=== PATIENT | female | born 1955 | race Caucasian/White ===

== ENCOUNTER 2017-11-11 21:19 | Emergency (ER) | payer SELFPAY ==
[2017-11-11] MEDS ORDERED: TETANUS & DIPHTHERIA TOX,ADULT 0.5 ML VIAL ONE (23:32)
--- NOTE | 2017-11-11 23:50 | EDPHYS ---
Physician Documentation [facility] Name: Diana Atwood Age: 62 yrs Sex: Female : 1955 Arrival Date: 11/11/2017 Time: 21:19 Bed 19 Private MD: ED Physician Gabriele Barth HPI: 11/12 00:03 This 62 yrs old Female presents to ER via Ambulatory with complaints of Fall snw Injury, Head Injury. 00:03 Details of fall: The patient fell from an upright position. Onset: The symptoms/episode snw began/occurred suddenly, just prior to arrival. Associated injuries: The patient sustained injury to the head. Severity of symptoms: At their worst the symptoms were moderate. The patient has not experienced similar symptoms in the past. The patient has not recently seen a physician. pt running down driveway in the dark after her dog. Tripped and fell striking head at right eyebrow on the concrete, no LOC, large hematoma to right orbital ridge and hindu. Historical: - Allergies: 11/11 21:41 Cipro; aa1 - Home Meds: 21:41 Lisinopril Oral [Active]; propranolol Oral [Active]; aa1 - PMHx: 21:41 Hypertension; aa1 - PSHx: 21:41 Tonsillectomy; Cholecystectomy; aa1 - Immunization history:: Last tetanus immunization: > 10 years ago. - Social history:: Smoking status: Patient/guardian denies using tobacco. ROS: 11/12 00:00 Constitutional: Negative for fever, chills, and weight loss, Eyes: Negative for injury, snw pain, redness, and discharge, ENT: Negative for injury, pain, and discharge, Neck: Negative for injury, pain, and swelling, Cardiovascular: Negative for chest pain, palpitations, and edema, Respiratory: Negative for shortness of breath, cough, wheezing, and pleuritic chest pain, Abdomen/GI: Negative for abdominal pain, nausea, vomiting, diarrhea, and constipation, Back: Negative for injury and pain, : Negative for injury, bleeding, discharge, and swelling, MS/Extremity: Negative for injury and deformity, Skin: Negative for injury, rash, and discoloration. Neuro: Positive for fell and struck head on concrete. Exam: 00:00 Constitutional: This is a well developed, well nourished patient who is awake, alert, snw and in no acute distress. Eyes: Pupils equal round and reactive to light, extra-ocular motions intact. Lids and lashes normal. Conjunctiva and sclera are non-icteric and not injected. Cornea within normal limits. Periorbital areas with no swelling, redness, or edema. ENT: Nares patent. No nasal discharge, no septal abnormalities noted. Tympanic membranes are normal and external auditory canals are clear. Oropharynx with no redness, swelling, or masses, exudates, or evidence of obstruction, uvula midline. Mucous membranes moist. Neck: Trachea midline, no thyromegaly or masses palpated, and no cervical lymphadenopathy. Supple, full range of motion without nuchal rigidity, or vertebral point tenderness. No Meningismus. Chest/axilla: Normal chest wall appearance and motion. Nontender with no deformity. No lesions are appreciated. Cardiovascular: Regular rate and rhythm with a normal S1 and S2. No gallops, murmurs, or rubs. Normal PMI, no JVD. No pulse deficits. Respiratory: Lungs have equal breath sounds bilaterally, clear to auscultation and percussion. No rales, rhonchi or wheezes noted. No increased work of breathing, no retractions or nasal flaring. Abdomen/GI: Soft, non-tender, with normal bowel sounds. No distension or tympany. No guarding or rebound. No evidence of tenderness throughout. Back: No spinal tenderness. No costovertebral tenderness. Full range of motion. Skin: Warm, dry with normal turgor. Normal color with no rashes, no lesions, and no evidence of cellulitis. MS/ Extremity: Pulses equal, no cyanosis. Neurovascular intact. Full, normal range of motion. ecchymosis and abrasion to right fifth finger Neuro: Awake and alert, GCS 15, oriented to person, place, time, and situation. Cranial nerves II-XII grossly intact. Motor strength 5/5 in all extremities. Sensory grossly intact. Cerebellar exam normal. Normal gait. 00:00 Head/face: Noted is hematoma, that is moderate, that is severe, of the right side of forehead and right hindu. Vital Signs: 11/11 21:41 BP 146 / 104; Pulse 97; Resp 20; Temp 97.6; Pulse Ox 99% on R/A; Weight 74.84 kg (R); aa1 Height 5 ft. 5 in. (165.10 cm); Pain 2/10; 22:45 BP 149 / 93; Pulse 94; Resp 17 S; Pulse Ox 99% on R/A; Pain 2/10; jd3 23:29 BP 133 / 85; Pulse 92; Resp 18; Pulse Ox 98% on R/A; jd3 21:41 Body Mass Index 27.46 (74.84 kg, 165.10 cm) aa1 [employer] Coma Score: 21:50 Eye Response: spontaneous(4). Verbal Response: oriented(5). Motor Response: obeys jd3 commands(6). Total: 15. MDM: 22:57 Patient medically screened. [facility] 11/12 00:02 Data reviewed: vital signs, nurses notes. Data interpreted: Pulse oximetry: on room air snw is 98 %. Interpretation: normal. Counseling: I had a detailed discussion with the patient and/or guardian regarding: the historical points, exam findings, and any diagnostic results supporting the discharge/admit diagnosis, the presence of at least one elevated blood pressure reading (>120/80) during this emergency department visit, radiology results, the need for outpatient follow up, to return to the emergency department if symptoms worsen or persist or if there are any questions or concerns that arise at home. Special discussion: Based on the patient's history, exam and DX evaluation, there is no indication for emergent intervention or inpatient TX. It is understood by the patient/guardian that if the SXs persist or worsen they need to return immediately for re-evaluation. Based on the history and exam findings, there is no indication for further emergent testing or inpatient evaluation. I discussed with the patient/guardian the need to see the primary care provider for further evaluation of the symptoms. 11/11 23:02 Order name: CT Head Brain wo Cont snw 11/11 23:02 Order name: Ice pack; Complete Time: 23:09 snw 11/11 23:02 Order name: Wound Care: right lateral hand; Complete Time: 23:09 snw Administered Medications: 11/11 23:17 Drug: Tetanus-Diphtheria Toxoid Adult 0.5 ml {Outsole Cutter Machine: [employer]. Exp: jd3 01/01/2020. Lot #: [id number]. } Route: IM; Site: right deltoid; 23:54 Follow up: Response: No adverse reaction jd3 Disposition: 11/12 07:09 Co-signature as Attending Physician, Gabriele Barth MD I agree with the assessment and [facility] plan of care. Disposition: 11/11/17 23:50 Discharged to Home. Impression: Superficial injury of head, Hematoma of superior orbital ridge/lateral hindu. - Condition is Stable. - Discharge Instructions: Abrasion, Head Injury, Adult, Hematoma, Fall Prevention and Home Safety, Post-Concussion Syndrome, VIS, Tetanus, Diphtheria (Td) - CDC. - Prescriptions for Tylenol- Codeine #3 300-30 mg Oral Tablet - take 1 tablet by ORAL route every 6 hours As needed; 30 tablet. - Medication Reconciliation Form, Thank You Letter, Antibiotic Education, Prescription Opioid Use form. - Follow up: Private Physician; When: 2 - 3 days; Reason: Recheck today's complaints, Continuance of care, Re-evaluation by your physician. Follow up: Emergency Department; When: As needed; Reason: Worsening of condition. Signatures: Dispatcher [employer] Ashly Noe, RN RN aa1 Gabriele Barth MD MD cha Therrien, Shelly, SENIOR CREDIT OFFICER-C SENIOR CREDIT OFFICER-Annaw Dennis Houston RN RN jd3
--- NOTE | 2017-11-11 23:50 | ER ---
Nurse's Notes [facility] Name: Diana Atwood Age: 62 yrs Sex: Female : 1955 Arrival Date: 11/11/2017 Time: 21:19 Bed 19 Private MD: Diagnosis: Superficial injury of head;Hematoma of superior orbital ridge/lateral pentecostalism Presentation: 11/11 21:39 Presenting complaint: Patient states: she was running down the driveway after her dog aa1 and tripped, causing her to fall and hit her head. Denies LOC. Transition of care: patient was not received from another setting of care. Onset of symptoms was November 11, 2017. Care prior to arrival: None. 21:39 Method Of Arrival: Ambulatory aa1 21:39 Acuity: TY 3 aa1 Triage Assessment: 21:41 General: Appears in no apparent distress. comfortable, Behavior is calm, cooperative, aa1 appropriate for age. Historical: - Allergies: 21:41 Cipro; aa1 - Home Meds: 21:41 Lisinopril Oral [Active]; propranolol Oral [Active]; aa1 - PMHx: 21:41 Hypertension; aa1 - PSHx: 21:41 Tonsillectomy; Cholecystectomy; aa1 - Immunization history:: Last tetanus immunization: > 10 years ago. - Social history:: Smoking status: Patient/guardian denies using tobacco. Screenin:44 Abuse screen: Denies threats or abuse. Nutritional screening: No deficits noted. jd3 Tuberculosis screening: No symptoms or risk factors identified. Fall Risk Fall in past 12 months (25 points). Mental Status- Oriented to own ability (0 pts). Total Hood Fall Scale indicates Low Risk Score (25-44 pts). Fall prevention measures have been instituted. Side Rails Up X 2 Placed close to Nursing Station Frequent Obs/Assesments occuring Family Present and informed to notify staff if they need to leave bedside. Assessment: 21:50 General: Appears in no apparent distress. uncomfortable, Behavior is calm, cooperative, jd3 appropriate for age. Pain: Complains of pain in forehead Pain currently is 2 out of 10 on a pain scale. Quality of pain is described as aching. Neuro: Level of Consciousness is awake, alert, obeys commands, Oriented to person, place, time, situation, Appropriate for age Tax Attorney are equal bilaterally Moves all extremities. Gait is steady, Speech is normal, Facial symmetry appears normal, Pupils are PERRLA, Intact. Cardiovascular: Heart tones S1 S2 present Capillary refill < 3 seconds Patient's skin is warm and dry. Respiratory: Airway is patent Respiratory effort is even, unlabored, Respiratory pattern is regular, symmetrical, Breath sounds are clear bilaterally. GI: Abdomen is round Patient currently denies nausea, vomiting. : No signs and/or symptoms were reported regarding the genitourinary system. EENT: No signs and/or symptoms were reported regarding the EENT system. Derm: Skin is intact, Skin is dry, Skin is normal, Skin temperature is warm. Musculoskeletal: Circulation, motion, and sensation intact. Range of motion: intact in all extremities. Injury Description: Bruise sustained to forehead is purple. 22:46 Reassessment: Patient appears in no apparent distress at this time. Patient and/or jd3 family updated on plan of care and expected duration. Pain level reassessed. Patient is alert, oriented x 3, equal unlabored respirations, skin warm/dry/pink. awaiting to be seen by provider. 11/12 00:06 Reassessment: Patient appears in no apparent distress at this time. Patient and/or jd3 family updated on plan of care and expected duration. Pain level reassessed. Patient is alert, oriented x 3, equal unlabored respirations, skin warm/dry/pink. pt reported understanding of discharge instructions, even and steady gait upon discharge. Vital Signs: 11/11 21:41 BP 146 / 104; Pulse 97; Resp 20; Temp 97.6; Pulse Ox 99% on R/A; Weight 74.84 kg (R); aa1 Height 5 ft. 5 in. (165.10 cm); Pain 2/10; 22:45 BP 149 / 93; Pulse 94; Resp 17 S; Pulse Ox 99% on R/A; Pain 2/10; jd3 23:29 BP 133 / 85; Pulse 92; Resp 18; Pulse Ox 98% on R/A; jd3 21:41 Body Mass Index 27.46 (74.84 kg, 165.10 cm) aa1 Ceasar Coma Score: 21:50 Eye Response: spontaneous(4). Verbal Response: oriented(5). Motor Response: obeys jd3 commands(6). Total: 15. ED Course: 21:19 Patient arrived in ED. ds1 21:40 Triage completed. aa1 21:41 Arm band placed on right wrist. Patient placed in an exam room, on a stretcher. aa1 21:50 Dennis Houston RN is Primary Nurse. jd3 22:44 Patient has correct armband on for positive identification. Bed in low position. Call jd3 light in reach. Side rails up X2. Adult w/ patient. 22:52 [facility]C [facility] snw 22:52 Gabriele Barth MD is Attending Physician. snw 23:54 No provider procedures requiring assistance completed. Patient did not have IV access jd3 during this emergency room visit. Administered Medications: 23:17 Drug: Tetanus-Diphtheria Toxoid Adult 0.5 ml {Project Technician: [employer]. Exp: jd3 01/01/2020. Lot #: [id number]. } Route: IM; Site: right deltoid; 23:54 Follow up: Response: No adverse reaction jd3 Outcome: 23:50 Discharge ordered by . snw 11/12 00:06 Discharged to home ambulatory, with family. jd3 Condition: stable Discharge instructions given to patient, family, Instructed on discharge instructions, follow up and referral plans. medication usage, Demonstrated understanding of instructions, follow-up care, medications, Prescriptions given X 1. 00:07 Patient left the ED. jd3 Signatures: Ashly Machado RN RN aa1 Sherly Florian FNP-C LICENSED EMBALMER SUPERVISOR-Csn Nell Patel ds1 Melody [address] ct Dennis Houston, RN RN jd3 Corrections: (The following items were deleted from the chart) 11/11 23:35 23:29 BP 162 / 91; Pulse 92bpm; Resp 18bpm; Pulse Ox 98% RA; mt jadela
--- NOTE | 2017-11-12 08:34 | RAD REPORT ---
EXAM DESCRIPTION: CT - Head Brain Wo Cont - 11/12/2017 3:20 am CLINICAL HISTORY: Fall, head injury. COMPARISON: None. TECHNIQUE: All CT scans are performed using dose optimization technique as appropriate and may inclu de automated exposure control or mA/KV adjustment according to patient size. FINDINGS: No intracranial hemorrhage, hydrocephalus or extra-axial fluid collection.No areas of brai n edema or evidence of midline shift. The paranasal sinuses and mastoids are clear. The calvarium is intact. Right frontal scalp hematoma i s noted. IMPRESSION: No acute intracranial abnormality.
== END 2017-11-12 00:07 | disposition home or self-care (01) ==
LOC: ER 21:19
DX: Y93.89 Activity, other specified; Y92.014 Private driveway to single-family (private) house as the place of occurrence of the external cause; I10 Essential (primary) hypertension; W01.0XXA Fall on same level from slipping, tripping and stumbling without subsequent striking against object, initial encounter; S00.90XA Unspecified superficial injury of unspecified part of head, initial encounter; Z88.1 Allergy status to other antibiotic agents
CPT/HCPCS: 70450; 90714; 99283

== ENCOUNTER 2023-07-12 01:53 | Emergency (ER) | payer OTHER ==
--- OUTSIDE RECORDS SUMMARY | 2023-07-12 01:56 | XMS REPORT | Continuity of Care Document ---
:1955 Author Organization [facility] t Address [address] [place] [address] [address] [place] [address] Care Team Providers Name Role Phone JACINDA CARUSO Primary Care Physician Unavailable Juan PELAYO, Laila Braun Attending Clinician Unavailable Only, Jann Db Test Attending Clinician Unavailable Unknown, Attending Attending Clinician Unavailable UNKNOWN, ATTENDING Attending Clinician Unavailable Problems This patient has no known problems. Allergies, Adverse Reactions, Alerts Allergy Allergy Status Severity Reaction(s) Onset Inactive Treating Comm ents Source Name Type Date Date Clinician Ciprofrhea Propensi Active Rash [facility] s xacin ty to 5-30 ity of adverse 00:00: [place] reaction 00 Medical s Branch CIPROFLO DRUG Active Rash Univers XACIN INGREDI 5-30 ity of 00:00: [place] [address] [facility] [place] Social History Social Habit Start Date Stop Date Quantity Comments Source Exposure to Yes [facility] SARS-CoV-2 (event) Medica l Branch Sex Assigned At [birth year] [facility] 00:00:00 00:00:00 [facility] [place] Smoking Status Start Date Stop Date Source Unknown if ever smoked [facility] Medications Ordered Filled Start Stop Current Ordering Indication Dosage Frequency Signature Comments Components Source Medication Medication Date Date Medication? Clinician (SIG) Name Name LISINOPRIL Yes Take by Univ ers ORAL 5-30 mouth. ity of 08:41: [place] [address] Medical Branch propranolol 2019-0 Yes 10mg Take 10 mg Univers 10 mg 5-30 by mouth 2 ity of tablet 08:41: (two) [place] [address] times Medical daily. Branch ASPIRIN 2018- Yes Take by Univers ORAL 5-30 mouth. ity of 08:41: [address] LISINOPRIL Yes Take by Univ ers ORAL 5-30 mouth. ity of 08:41: [address] propranolol 2018- Yes 10mg Take 10 mg Univers 10 mg 5-30 by mouth 2 ity of tablet 08:41: (two) [place] [address] times Medical daily. Branch ASPIRIN Yes Take by Univers ORAL 5-30 mouth. ity of 08:41: [address] Procedures This patient has no known procedures. Encounters Start End Encounter Admission Attending Care Care Encounter Source Date/Time Date/Time Type Type Clinicians Facility Department ID 2021-11-01 2021-11-01 Emergency X [facility] ERT [id number] Univers 12:28:00 12:28:00 ity [facility] 2021-05-27 2021-05-27 Letter FROY Martinez [id number] Univers 00:00:00 00:00:00 (Out) Laila HAILE [id number] it y of [facility] [id number] Joesph as [phone] [address] 2021-05-26 2021-05-26 Laboratory Only, Ang Db Test [facility] [id number] Univers 09:02:54 09:17:54 Only Unknown, Attending [facility] [id number] ity [facility] [id number] Joesph as Jovany?Blea [phone] [address] Medical Office Building 2021-05-26 2021-05-26 Outpatient R UNKNOWN, [facility] [id number] Univers 09:00:00 09:00:00 ATTENDING ity [facility] 2021-04-02 2021-04-02 Outpatient R UNKNOWN, [facility] [id number] Univers 13:15:00 13:15:00 ATTENDING ity [facility] 2021-03-30 2021-03-30 Outpatient R [facility] [id number] Univers 15:20:00 15:20:00 [facility] Results Test Description Test Time Test Comments Results Result Comments Source US GUIDE FNA BIOPSY 2018-02-04 CLINICAL NECK/THYROID/HEAD 13:50:17 INDICATION: E04.1 Nontoxic single thyroid noduleMODALITY: [employer] PreirusTECHNIQUE: Informed consent is obtained. Benefits, risks and alternatives are discussed in detail with the patient. The neck is prepped and draped in routine fashion. 1% buffered lidocaine is used for local analgesia. Using ultrasound guidance, multiple passes are made into the suspicious area utilizing a 25 gauge needle. Slides are prepared and submitted for cytological analysis.Estimated blood loss: 0 ml. FINDINGS:Needle is depicted within the suspected lesion.IMPRESSION:1 . Ultrasound - guided biopsy 3.3 x 1.6 cm left thyroid nodule. 2. Pathologic diagnosis: Negative for malignancy; histologic prediction is adenomatous nodule.This represents a concordant result.
[2023-07-12 02:38] LABS: Absolute Lymphocytes (CBC) 2.3 K/uL (0.7-4.9); Lymphocytes % 36.1 % (15.3-44.8); MCV 92.8 fL (80-100); MPV 8.9 fL (7.6-11.3); Platelets 204 thou/uL (152-406); RBC Red Blood Cell Count 4.42 M/uL (3.86-4.86)
[2023-07-12 03:01] LABS: Albumin 3.6 g/dL (3.4-5.0); Bilirubin Total 0.5 mg/dL (0.2-1.0); Potassium 3.5 mEq/L (3.5-5.1)
--- NOTE | 2023-07-12 03:05 | EDPHYS ---
Physician Documentation [facility] Name: Diana Atwood Age: 68 yrs Sex: Female : 1955 Arrival Date: 07/12/2023 Time: 01:53 Bed 15 Private MD: ED Physician Narayan Mustafa HPI: 07/12 02:12 This 68 yrs old Female presents to ER via Ambulatory with complaints of Pt denies any ec2 symptoms, she just would like to have blood pressure checked.. 02:21 Patient with history of hypertension arrives today due to concern for asymptomatic ec2 hypertension. States that she had noted her pressures were elevated at home and wanted to be evaluated. Patient reports no chest pain, shortness of breath, abdominal pain, headache, nausea, vomiting or other concerns. States that she is on losartan which she reports medication compliance, does state that she has had increased stress at home and feels this may can be contributing to her high blood pressure. Patient was previously on spironolactone several months ago however has not been on this recently.. Historical: - Allergies: 02:04 Cipro; rv - PMHx: 02:04 Hypertension; rv - PSHx: 02:04 None; rv - Immunization history:: Adult Immunizations up to date. - Social history:: Smoking status: Patient denies any tobacco usage or history of. ROS: 02:21 Constitutional: as per hpi ec2 Exam: 02:21 Constitutional: GEN: NAD Head: atraumatic Eyes: EOMI Ears: External ears are ec2 normal. CV: regular rate LUNGS: no respiratory distress ABD: non-distended SKIN: no evidence of rashes MSK: no evidence of trauma NEURO: moves all extremities equally Vital Signs: 02:02 BP 189 / 105; Pulse 100; Resp 19; Temp 98; Pulse Ox 100% ; Weight 81.65 kg; Height 5 rv ft. 6 in. ; 02:15 BP 159 / 90; Pulse 93; Resp 16; Pulse Ox 100% on R/A; km8 02:30 BP 153 / 88; Pulse 90; Resp 16 S; Pulse Ox 100% on R/A; km8 02:45 BP 135 / 82; Pulse 89; Resp 16; Pulse Ox 99% on R/A; km8 03:00 BP 112 / 80; Pulse 83; Resp 16 S; Pulse Ox 100% on R/A; km8 03:02 BP 135 / 82; ec2 03:03 Pulse 88; ec2 02:02 Body Mass Index 29.05 (81.65 kg, 167.64 cm) rv Leroy Coma Score: 02:15 Eye Response: spontaneous(4). Motor Response: obeys commands(6). Verbal Response: km8 oriented(5). Total: 15. MDM: 02:11 Patient medically screened. ec2 02:21 Data reviewed: vital signs. ED course: Patient arrives today for evaluation of ec2 asymptomatic hypertension. Examination remarkable for well-appearing nontoxic individual is otherwise in no acute distress. Will obtain basic lab work to evaluate for organ dysfunction otherwise I have a low suspicion for processes such as acute renal failure, ACS, dissection given lack of symptoms.. 03:04 ED course: Metabolic profile is reassuring without evidence of renal abnormalities. CBC ec2 is reassuring. Patient with reassuring blood pressure, no symptom complaints. Will discharge home. Return precautions given. . 07/12 02:21 Order name: CBC with Diff; Complete Time: 03:03 ec2 07/12 02:21 Order name: CMP; Complete Time: 03:03 ec2 Administered Medications: No medications were administered Disposition Summary: 07/12/23 03:04 Discharge Ordered Condition: Stable ec2 Diagnosis - Asymptomatic Hypertension ec2 Followup: ec2 - With: Private Physician - When: - Reason: Re-evaluation by your physician Discharge Instructions: - Discharge Summary Sheet ec2 Forms: - Medication Reconciliation Form ec2 - Thank You Letter ec2 - Antibiotic Education ec2 - Prescription Opioid Use ec2 - Patient Portal Instructions ec2 - Leadership Thank You Letter ec2 Signatures: Dispatcher [employer] Pete Gallo RN RN Narayan Leung MD MD ec2
--- NOTE | 2023-07-12 03:05 | ER ---
Nurse's Notes [facility] Name: Diana Atwood Age: 68 yrs Sex: Female : 1955 Arrival Date: 07/12/2023 Time: 01:53 Bed 15 Private MD: Diagnosis: Asymptomatic Hypertension Presentation: 07/12 02:02 Chief complaint: Patient states: CHECK BP AT 2330 BEFORE GOING TO BED, TOOK EXTRA DOSE rv OF PRESCRIPTION MEDICATION (LOSARTAN). CHECKED AGAIN AFTER AN HOUR AND IS STILL HIGH. DENIES CHEST PAIN/SOB. Coronavirus screen: At this time, the client does not indicate any symptoms associated with coronavirus-19. Ebola Screen: No symptoms or risks identified at this time. Initial Sepsis Screen: Does the patient meet any 2 criteria? No. Patient's initial sepsis screen is negative. Does the patient have a suspected source of infection? No. Patient's initial sepsis screen is negative. Risk Assessment: Do you want to hurt yourself or someone else? Patient reports no desire to harm self or others. Onset of symptoms was July 12, 2023. 02:02 Method Of Arrival: Ambulatory rv 02:02 Acuity: TY 3 rv Triage Assessment: 02:04 General: Appears comfortable, Behavior is calm, cooperative. Pain: Denies pain. Neuro: rv Level of Consciousness is awake, alert, obeys commands, Oriented to person, place, time, situation. Cardiovascular: Capillary refill < 3 seconds Patient's skin is warm and dry. Chest pain is denied. Respiratory: Airway is patent Respiratory effort is even, unlabored. GI: No signs and/or symptoms were reported involving the gastrointestinal system. : No signs and/or symptoms were reported regarding the genitourinary system. Derm: Skin is intact. Historical: - Allergies: 02:04 Cipro; rv - PMHx: 02:04 Hypertension; rv - PSHx: 02:04 None; rv - Immunization history:: Adult Immunizations up to date. - Social history:: Smoking status: Patient denies any tobacco usage or history of. Screenin:15 [facility] ED Fall Risk Assessment (Adult) History of falling in the last 3 months, km8 including since admission No falls in past 3 months (0 pts) Confusion or Disorientation No (0 pts) Intoxicated or Sedated No (0 pts) Impaired Gait No (0 pts) Mobility Assist Device Used No (0 pt) Altered Elimination No (0 pt) Score/Fall Risk Level 0 - 2 = Low Risk Oriented to surroundings, Maintained a safe environment, Educated pt \T\ family on fall prevention, incl call for assistance when getting out of bed, Assessed \T\ reinforced patient's understanding of fall precautions. Abuse screen: Denies threats or abuse. Denies injuries from another. Nutritional screening: No deficits noted. Tuberculosis screening: No symptoms or risk factors identified. Assessment: 02:15 General: Appears in no apparent distress. comfortable, Behavior is calm, cooperative, km8 appropriate for age. 02:15 Pain: Denies pain. Neuro: [place]ley Agitation-Sedation Scale (RASS): 0 - Alert and Calm km8 Level of Consciousness is awake, alert, obeys commands, Oriented to person, place, time, situation. Cardiovascular: Denies chest pain, shortness of breath, Capillary refill < 3 seconds Patient's skin is warm and dry. Respiratory: Airway is patent Respiratory effort is even, unlabored, Respiratory pattern is regular, symmetrical. GI: No signs and/or symptoms were reported involving the gastrointestinal system. : No signs and/or symptoms were reported regarding the genitourinary system. EENT: No signs and/or symptoms were reported regarding the EENT system. Derm: No signs and/or symptoms reported regarding the dermatologic system. Skin is intact, is healthy with good turgor, Skin is dry, Skin is pink, warm \T\ dry. normal, Skin temperature is warm. Musculoskeletal: No signs and/or symptoms reported regarding the musculoskeletal system. Range of motion: intact in all extremities. 03:20 Reassessment: Patient appears in no apparent distress at this time. No changes from km8 previously documented assessment. Patient and/or family updated on plan of care and expected duration. Pain level reassessed. Patient is alert, oriented x 3, equal unlabored respirations, skin warm/dry/pink. Vital Signs: 02:02 BP 189 / 105; Pulse 100; Resp 19; Temp 98; Pulse Ox 100% ; Weight 81.65 kg; Height 5 rv ft. 6 in. ; 02:15 BP 159 / 90; Pulse 93; Resp 16; Pulse Ox 100% on R/A; km8 02:30 BP 153 / 88; Pulse 90; Resp 16 S; Pulse Ox 100% on R/A; km8 02:45 BP 135 / 82; Pulse 89; Resp 16; Pulse Ox 99% on R/A; km8 03:00 BP 112 / 80; Pulse 83; Resp 16 S; Pulse Ox 100% on R/A; km8 03:02 BP 135 / 82; ec2 03:03 Pulse 88; ec2 02:02 Body Mass Index 29.05 (81.65 kg, 167.64 cm) rv [place] Coma Score: 02:15 Eye Response: spontaneous(4). Motor Response: obeys commands(6). Verbal Response: km8 oriented(5). Total: 15. ED Course: 01:56 Patient arrived in ED. jj6 02:04 Triage completed. rv 02:04 Arm band placed on right wrist. rv 02:10 Aundrea Manzo, RN is Primary Nurse. km8 02:11 Narayan Mustafa MD is Attending Physician. ec2 02:15 Patient has correct armband on for positive identification. Bed in low position. Call km8 light in reach. Side rails up X 1. Client placed on continuous cardiac and pulse oximetry monitoring. NIBP monitoring applied. Door closed. Noise minimized. 02:15 Patient maintains SpO2 saturation greater than 95% on room air. km8 02:25 Inserted saline lock: 20 gauge in left antecubital area, using aseptic technique. Blood km8 collected. 02:41 No provider procedures requiring assistance completed. km8 03:20 Provided Education on: d/c teaching. km8 03:20 IV discontinued, intact, bleeding controlled, No redness/swelling at site. Pressure km8 dressing applied. Administered Medications: No medications were administered Medication: 02:41 VIS not applicable for this client. km8 Outcome: 03:04 Discharge ordered by . ec2 03:20 Discharged to home ambulatory, with significant other, km8 03:20 Condition: good 03:20 Discharge instructions given to patient, significant other, Instructed on discharge instructions, follow up and referral plans. Demonstrated understanding of instructions, follow-up care, 03:20 Patient left the ED. km8 Signatures: Pete Perez RN RN rv Reggie Lisset j6 Narayan Mustafa MD MD Aundrea Vasquez RN RN km8
[2023-07-12 03:50] VITALS: TEMP 98
[2023-07-12 03:56] VITALS: O2SAT 100
[2023-07-12 03:57] VITALS: BP 135/82
== END 2023-07-12 03:20 | disposition home or self-care (01) ==
LOC: ER 01:53
DX: I10 Essential (primary) hypertension (principal); Z88.8 Allergy status to other drugs, medicaments and biological substances
CPT/HCPCS: 36415; 80053; 85025; 99284

== ENCOUNTER 2024-02-12 01:47 | Emergency (ER) | payer OTHER ==
--- OUTSIDE RECORDS SUMMARY | 2024-02-12 01:49 | XMS REPORT | Continuity of Care Document ---
Author Name Unknown Address [address] [place] [address] [facility] thconnect Address [address] [place] [address] Care Team Providers Care Manager Merchandise Name Role Phone SHADY JACINDA Primary Care Physician Unavailab lolita Martinez RN, Laila Braun Attending Clinician Unavailab le Only, Ang Db Test Attending Clinician Unavailabl e Unknown, Attending Attending Clinician Unavailab le UNKNOWN, ATTENDING Attending Clinician Unavailab le Allergies, Adverse Reactions, Alerts Allergy Name Allergy Type Status Severity Reaction(s) Onset Date Inactive Date Treating Clinician Comments Source Ciproflo xacin Propensi ty to adverse reaction s Active Rash 01-20 00:00: 00 [facility] CIPROFLO XACIN DRUG INGREDI Active Rash 01-20 00:00: 00 [facility] Social History Social Habit Start Date Stop Date Quantity Comments Source Exposure to SARS-CoV-2 (event) Yes [facility] Sex Assigned At 1955 00:00:00 1955 00:00:00 [facility] Smoking Status Start Date Stop Date Source Unknown if ever smoked [facility] Medications Ordered Medication Name Filled Medication Name Start Date Stop Date Current Medication? Ordering Clinician Indication Dosage Frequency Signature (SIG) Comments Components Source LISINOPRIL ORAL 01-20 08:41: 26 Yes Take by mouth. [facility] propranolol 10 mg tablet 01-20 08:41: 26 Yes 10mg Take 10 mg by mouth 2 (two) times daily. [facility] Encounters Start Date/Time End Date/Time Encounter Type Admission Type Attending [facility] Care Department Encounter ID Source 2021-11-01 12:28:00 2021-11-01 12:28:00 Emergency X [facility] ERT [id number] [facility] 2021-05-27 00:00:00 2021-05-27 00:00:00 Letter (Out) Laila Martinez [facility] [id number] [facility] 2021-05-26 09:02:54 2021-05-26 09:17:54 Laboratory Only Only, Ang Db Test Unknown, [facility] [id number] [facility] 2021-05-26 09:00:00 2021-05-26 09:00:00 Outpatient R UNKNOWN, ATTENDING [facility] [id number] [facility] 2021-04-02 13:15:00 2021-04-02 13:15:00 Outpatient R UNKNOWN, ATTENDING [facility] [id number] [facility] 2021-03-30 15:20:00 2021-03-30 15:20:00 Outpatient R [facility] [id number] [facility] Results Test Description Test Time Test Comments Results Result Co mments Source US GUIDE FNA BIOPSY NECK/THYROID/HEAD 2018-02-04 13:50:17 CLINICAL INDICATION: E04.1 Nontoxic single thyroid noduleMODALITY: [employer] [...]
[2024-02-12] MEDS ORDERED: LOSARTAN POTASSIUM 50 MG TABLET ONE (02:22)
--- NOTE | 2024-02-12 02:23 | ER ---
Nurse's Notes [facility] Name: Diana Atwood Age: 68 yrs Sex: Female : 1955 Arrival Date: 02/12/2024 Time: 01:47 Bed 20 Private MD: Diagnosis: Essential (primary) hypertension Presentation: 02/11 01:59 Chief complaint: Patient states: checked BP at bedtime and it was high and has been lg3 high all night. denies symptoms at this time. out of HTN medication X2 days. Coronavirus screen: Client denies travel out of the [place] in the last 14 days. At this time, the client does not indicate any symptoms associated with coronavirus-19. Ebola Screen: No symptoms or risks identified at this time. Initial Sepsis Screen: Does the patient meet any 2 criteria? No. Patient's initial sepsis screen is negative. Does the patient have a suspected source of infection? No. Patient's initial sepsis screen is negative. Risk Assessment: Do you want to hurt yourself or someone else? Patient reports no desire to harm self or others. Onset of symptoms was February 11, 2024. 01:59 Method Of Arrival: Ambulatory lg3 01:59 Acuity: TY 3 lg3 Triage Assessment: 02:01 General: Appears in no apparent distress. comfortable, Behavior is calm, cooperative. lg3 Pain: Denies pain. EENT: No deficits noted. No signs and/or symptoms were reported regarding the EENT system. Neuro: No deficits noted. Dudley Agitation-Sedation Scale (RASS): 0 - Alert and Calm Level of Consciousness is awake, alert, obeys commands, Oriented to person, place, time, situation. Cardiovascular: No deficits noted. Denies chest pain, shortness of breath, Capillary refill < 3 seconds Clubbing of nail beds is absent JVD is absent Patient's skin is warm and dry. Respiratory: No deficits noted. Airway is patent Respiratory effort is even, unlabored, Respiratory pattern is regular, symmetrical. GI: No deficits noted. No signs and/or symptoms were reported involving the gastrointestinal system. : No deficits noted. No signs and/or symptoms were reported regarding the genitourinary system. Derm: No deficits noted. No signs and/or symptoms reported regarding the dermatologic system. Skin is intact, is healthy with good turgor, Skin is dry, Skin is normal, Skin temperature is warm. Musculoskeletal: No deficits noted. No signs and/or symptoms reported regarding the musculoskeletal system. Circulation, motion, and sensation intact. Range of motion: intact in all extremities. Historical: - Allergies: 02:01 Cipro; lg3 - Home Meds: 02:01 lisinopril Oral [Active]; lg3 - PMHx: 02:01 Hypertension; lg3 - PSHx: 02:01 Cholecystectomy; lg3 - Immunization history:: Adult Immunizations up to date. - Infectious Disease History:: Denies. - Social history:: Smoking status: Patient denies any tobacco usage or history of. Patient/guardian denies using alcohol, street drugs. - Family history:: not pertinent. Screenin:05 Abuse screen: Denies threats or abuse. Denies injuries from another. jw7 02:05 [facility] ED Fall Risk Assessment (Adult) History of falling in the last 3 months, jw7 including since admission No falls in past 3 months (0 pts) Confusion or Disorientation No (0 pts) Intoxicated or Sedated No (0 pts) Impaired Gait No (0 pts) Mobility Assist Device Used No (0 pt) Altered Elimination No (0 pt) Score/Fall Risk Level 0 - 2 = Low Risk Oriented to surroundings, Maintained a safe environment, Educated pt \T\ family on fall prevention, incl call for assistance when getting out of bed. Nutritional screening: No deficits noted. Tuberculosis screening: No symptoms or risk factors identified. Assessment: 02:05 General: Appears in no apparent distress. comfortable, Behavior is calm, cooperative, jw7 appropriate for age. Pain: Denies pain. Neuro: Level of Consciousness is awake, alert, obeys commands, Oriented to person, place, time, situation, Appropriate for age. Cardiovascular: Heart tones S1 S2 present Capillary refill < 3 seconds Clubbing of nail beds is absent JVD is absent Patient's skin is warm and dry. Respiratory: Airway is patent Trachea midline Respiratory effort is even, unlabored, Respiratory pattern is regular, symmetrical, Breath sounds are clear bilaterally. GI: Abdomen is flat, non-distended, Bowel sounds present X 4 quads. Abd is soft and non tender X 4 quads. : No deficits noted. No signs and/or symptoms were reported regarding the genitourinary system. EENT: No deficits noted. No signs and/or symptoms were reported regarding the EENT system. Derm: Skin is intact, is healthy with good turgor, Skin is dry, Skin is normal, Skin temperature is warm. Musculoskeletal: Circulation, motion, and sensation intact. Range of motion: intact in all extremities. Vital Signs: 01:59 BP 179 / 100; Pulse 77 RA; Resp 17 S; Temp 98.1(O); Pulse Ox 99% on R/A; Weight 77.11 lg3 kg (R); Height 5 ft. 6 in. (R); 02:31 BP 171 / 91; Pulse 74; Resp 16 S; Temp 98.2(O); Pulse Ox 100% on R/A; jw7 01:59 Body Mass Index 27.44 (77.11 kg, 167.64 cm) lg3 [place] Coma Score: 04:07 Eye Response: spontaneous(4). Motor Response: obeys commands(6). Verbal Response: sp4 oriented(5). Total: 15. ED Course: 01:53 Patient arrived in ED. jj6 02:01 Triage completed. lg3 02:01 Arm band placed on right wrist. lg3 02:05 Patient has correct armband on for positive identification. Bed in low position. Call jw7 light in reach. Provided Education on: Use of Call Light. 02:06 Donato Brown MD is Attending Physician. sp4 02:14 Jackelyn Leach RN is Primary Nurse. jw7 02:21 Mateusz Ibarra DO is Referral Physician. sp4 02:33 No provider procedures requiring assistance completed. Patient did not have IV access jw7 during this emergency room visit. Administered Medications: 02:30 Drug: Losartan PO 25 mg PO once Route: PO; jw7 02:34 Follow up: Response: No adverse reaction; Medication administered at discharge. jw7 Medication: 02:34 VIS not applicable for this client. jw7 Outcome: 02:22 Discharge ordered by . sp4 02:33 Discharged to home ambulatory, jw7 02:33 Condition: stable 02:33 Discharge instructions given to patient, Instructed on discharge instructions, follow up and referral plans. medication usage, Demonstrated understanding of instructions, follow-up care, medications, Prescriptions given X 1, 02:34 Patient left the ED. jw7 Signatures: Patria Hamilton RN RN lg3 Lisset Paredes jj6 Jackelyn Leach RN RN jw7 Donato Brown MD MD sp4 Corrections: (The following items were deleted from the chart) 02:02 01:59 Chief complaint: Patient states: checked BP at bedtime and it was high and has lg3 been high all night. denies symptoms at this time lg3
--- NOTE | 2024-02-12 02:23 | EDPHYS ---
Physician Documentation [facility] Name: Diana Atwood Age: 68 yrs Sex: Female : 1955 Arrival Date: 02/12/2024 Time: 01:47 Bed 20 Private MD: ED Physician Donato Brown HPI: 02/11 02:07 This 68 yrs old White Female presents to ER via Ambulatory with complaints of High sp4 Blood Pressure. 04:07 Very pleasant 68-year-old female presents with request for refill for her losartan.. sp4 Patient states she is hypertensive and she has not taken her losartan in the last 2 days.. Historical: - Allergies: 02:01 Cipro; lg3 - Home Meds: 02:01 lisinopril Oral [Active]; lg3 - PMHx: 02:01 Hypertension; lg3 - PSHx: 02:01 Cholecystectomy; lg3 - Immunization history:: Adult Immunizations up to date. - Infectious Disease History:: Denies. - Social history:: Smoking status: Patient denies any tobacco usage or history of. Patient/guardian denies using alcohol, street drugs. - Family history:: not pertinent. ROS: 04:07 Constitutional: Negative for fever, chills, and weight loss, sp4 04:07 All other systems are negative, Exam: 04:07 Constitutional: This is a well developed, well nourished patient who is awake, alert, sp4 and in no acute distress. Head/Face: Normocephalic, atraumatic. Eyes: Pupils equal round and reactive to light, extra-ocular motions intact. Lids and lashes normal. Conjunctiva and sclera are not injected. Cornea within normal limits. Periorbital areas with no swelling, redness, or edema. ENT: Nares patent. No nasal discharge, no septal abnormalities noted. Tympanic membranes are normal and external auditory canals are clear. Oropharynx with no redness, swelling, or masses, exudates, or evidence of obstruction, uvula midline. Mucous membranes moist. Neck: Trachea midline, no thyromegaly or masses palpated, and no cervical lymphadenopathy. Supple, full range of motion without nuchal rigidity, or vertebral point tenderness. Chest/axilla: Normal chest wall appearance and motion. Nontender with no deformity. No lesions are appreciated. Cardiovascular: Regular rate and rhythm with a normal S1 and S2. No gallops, murmurs, or rubs. Normal PMI, no JVD. No pulse deficits. Respiratory: Lungs have equal breath sounds bilaterally, clear to auscultation and percussion. No rales, rhonchi or wheezes noted. No increased work of breathing, no retractions or nasal flaring. Abdomen/GI: Soft, with normal bowel sounds. No distension or tympany. No guarding or rebound. No evidence of tenderness throughout. Back: No spinal tenderness. No costovertebral tenderness. Skin: Warm, dry with normal turgor. Normal color with no rashes, no lesions, and no evidence of cellulitis. MS/ Extremity: Pulses equal, no cyanosis. Neurovascular intact. Full, normal range of motion. Neuro: Awake and alert, GCS 15, oriented to person, place, time, and situation. Cranial nerves II-XII grossly intact. Motor strength 5/5 in all extremities. Sensory grossly intact. Psych: Awake, alert, with orientation to person, place and time. Behavior, mood, and affect are within normal limits Vital Signs: 01:59 BP 179 / 100; Pulse 77 RA; Resp 17 S; Temp 98.1(O); Pulse Ox 99% on R/A; Weight 77.11 lg3 kg (R); Height 5 ft. 6 in. (R); 02:31 BP 171 / 91; Pulse 74; Resp 16 S; Temp 98.2(O); Pulse Ox 100% on R/A; jw7 01:59 Body Mass Index 27.44 (77.11 kg, 167.64 cm) lg3 [place] Coma Score: 04:07 Eye Response: spontaneous(4). Motor Response: obeys commands(6). Verbal Response: sp4 oriented(5). Total: 15. MDM: 02:22 Patient medically screened. sp4 04:07 Differential diagnosis: hypertensive crisis, Malignant HTN, Uncontrolled hypertension. sp4 Data reviewed: vital signs, nurses notes. ED course: Patient stable for discharge home with prescription for losartan. Patient was referred to a primary care physician Dr. Ibarra . Administered Medications: 02:30 Drug: Losartan PO 25 mg PO once Route: PO; jw7 02:34 Follow up: Response: No adverse reaction; Medication administered at discharge. jw7 Disposition Summary: 02/12/24 02:22 Discharge Ordered Notes: Location: Home sp4 Problem: new sp4 Symptoms: have improved sp4 Condition: Stable sp4 Diagnosis - Essential (primary) hypertension sp4 Followup: sp4 - With: Mateusz Ibarra DO - When: 7 - 10 days - Reason: Recheck today's complaints Discharge Instructions: - Discharge Summary Sheet sp4 - Hypertension, Adult, [id number] sp4 Forms: - Patient Portal Instructions sp4 Prescriptions: - losartan 25 mg Oral tablet - take 1 tablet ORAL route every morning; 90 tablet; Refills: 0, Product sp4 Selection Permitted - losartan 25 mg Oral tablet - take 1 tablet ORAL route every 12 hours; 180 tablet; Refills: 0, Product sp4 Selection Permitted Signatures: Dispatcher [employer] EDMS Patria Hamilton RN RN lg3 Jackelyn Leach RN RN jw7 Donato Brown MD MD sp4 Corrections: (The following items were deleted from the chart) 02: 02:06 Cardiac monitoring ordered. sp4 lg3 02: 02:06 EKG - Nurse/Tech ordered. sp4 lg3 02: 02:06 IV Saline Lock ordered. sp4 lg3 02: 02:06 Labs collected and sent ordered. sp4 lg3 : 02:06 Oxygen Per Protocol ordered. sp4 lg3 : 02:06 O2 Sat Monitoring ordered. sp4 lg3
[2024-02-12 03:08] VITALS: BP 171/91; TEMP 98.2; O2SAT 100
== END 2024-02-12 02:34 | disposition home or self-care (01) ==
LOC: ER 01:47
DX: I10 Essential (primary) hypertension (principal); Z79.899 Other long term (current) drug therapy; Z88.8 Allergy status to other drugs, medicaments and biological substances
CPT/HCPCS: 99283